=== PATIENT | female | born 1960 | race African-American/Black ===

== ENCOUNTER 2016-08-22 12:50 | Emergency (ER) | payer OTHER ==
[~2016-08-22] VITALS: Ht 157.5 cm; Wt 74.8 kg
--- NOTE | 2016-08-22 13:06 | NUR ---
PT BRIB self, c/o of N/V/D x 5 days, states " 3 episdoes emesis today" 09/03 cramping pain to lower abd non radiating, abd is soft/tender to touch.
[2016-08-22] MEDS ORDERED: IV SET PRIMARY 1 EA INFUS.SET MC ONE ×2 (13:21→13:47)
[2016-08-22] MEDS ORDERED: IV NS 0.9% 1,000 ML ONE ×2 (13:21→13:47)
[2016-08-22] MEDS ORDERED: MORPHINE SULFATE INJ 2 MG/ML DISP.SYRIN ONE (13:21)
[2016-08-22] MEDS ORDERED: ONDANSETRON HCL/PF 4 MG/2 ML VIAL ONE (13:21)
--- NOTE | 2016-08-22 13:23 | NUR ---
CALLED KENNY, DATA SERVICES DEVELOPER, TO COME SEE PT
[2016-08-22 13:27] LABS: EOSINOPHILS # (AUTO) 0.1 /CMM (0.0-0.7)
[2016-08-22 13:28] LABS: BASOPHILS # (AUTO) 0.5 /CMM (0.0-0.2); BASOPHILS % (AUTO) 4.9 % (0.0-2.0); EOSINOPHILS % (AUTO) 0.6 % (0.0-6.0); HEMATOCRIT 37 % (33-45); HEMOGLOBIN 11.8 g/dL (11.5-14.8); LYMPHOCYTES # (AUTO) 2.3 /CMM (0.8-4.8); MEAN CORPUSCULAR HEMOGLOBIN 28 PG (26.0-33.0); MEAN CORPUSCULAR HGB CONC 32 g/dl (31.0-36.0); MEAN CORPUSCULAR VOLUME 87 fL (82-100); MONOCYTES # (AUTO) 0.8 /CMM (0.1-1.30); MONOCYTES % (AUTO) 6.8 % (2.0-12.0); NEUTROPHILS # (AUTO) 7.4 /CMM (1.8-8.9); NEUTROPHILS % (AUTO) 66.7 % (43.0-81.0); PLATELET COUNT (AUTO) 358 /CMM (150-450); RED BLOOD CELL COUNT(AUTO) 4.29 MIL/uL (4.0-5.2); WHITE BLOOD COUNT (AUTO) 11.1 K/uL (4.3-11.0)
[2016-08-22] MEDS ORDERED: IV NS 0.9% 1,000 ML BAG IV ONE ×2 (13:30→14:00)
[2016-08-22] MEDS ORDERED: ONDANSETRON HCL/PF 4 MG/2 ML VIAL IVP ONE (13:30)
[2016-08-22] MEDS ORDERED: MORPHINE SULFATE INJ 2 MG/ML DISP.SYRIN IV ONE (13:30)
[2016-08-22 13:33] LABS: CALCIUM, SERUM 9.4 mg/dL (8.5-10.1); CREATININE 1.1 mg/dL (0.6-1.3); POTASSIUM 3.4 mmol/L (3.5-5.1)
[2016-08-22 13:38] LABS: ALBUMIN 3.5 g/dL (3.4-5.0); BILIRUBIN,DIRECT 0.1 mg/dL (0.0-0.2); BILIRUBIN,TOTAL 0.3 mg/dL (0.2-1.0); TOTAL PROTEIN, SERUM 7.9 g/dL (6.4-8.2)
[2016-08-22 13:44] LABS: BILIRUBIN,URINE Negative (NEGATIVE); BLOOD, URINE Trace-lysed Ery/uL (NEGATIVE); COLOR,URINE Yellow (YELLOW); KETONES,URINE 15 (NEGATIVE); LEUKOCYTE ESTERASE ,URINE Negative (NEGATIVE); NITRITE, URINE Negative (NEGATIVE); PROTEIN,URINE 100 mg/dl (NEGATIVE); UGLUCOSE 500 MG/DL mg/dL (NEGATIVE)
[2016-08-22 13:46] LABS: APPEARANCE,URINE Hazy (CLEAR)
[2016-08-22] MEDS ORDERED: METOCLOPRAMIDE HCL 10 MG/2 ML VIAL ONE (13:47)
[2016-08-22 13:50] LABS: RBC,URINE 0-2 /HPF (0-2)
[2016-08-22 13:51] LABS: BACTERIA,URINE None seen /HPF (None Seen); MUCUS,URINE Rare /LPF (None Seen); SQUAMOUS EPITHELIAL CELL,UR Few /HPF (None Seen)
[2016-08-22] MEDS ORDERED: diphenhydrAMINE HCL 50 MG/ML VIAL ONE (13:51)
--- NOTE | 2016-08-22 13:53 | NUR ---
DMITRY received a call from Uma in ED informing DMITRY that Physicians Estimator And Drafter Supervisor Blanka Ware requested for SW to see pt. due to possible living situation. SW met with pt. bedside. SW introduced herself to pt. and inquired why was she crying. Pt. is a 56 year old pleasant woman who appeared depressed and tearful. Pt. informed SW that she use to live in [place] with her boyfriend two years ago, however her boyfriend suffered a stroke and is currently in a coma and paralyzed. Pt's boyfriend is currently at [facility]. Pt. is currently living on a friend's couch. Her [place] of [place] is [id number] [place] [address], [address], [facility]. Pt. is very emotional and having a difficult time dealing with her boyfriend's medical condition. SW provided active listening and emotional support to pt. Pt. states she lives in her car on some days. SW offered snf placement, however pt. refused stating she will go back to her friend's place to the aforementioned address. DMITRY also encouraged pt. to attend an outpatient mental health clinic for therapy to deal with the trauma she has experienced due to her boyfriend's medical condition. Pt. agreed to accept referrals to mental health clinics. Pt. informed SW she use to go to a therapist two years ago but only went for a few sessions. DMITRY offered pt. the following resources: Homeless Resource Directory which includes hot meals, showers, emergency shelters, transitional housing; [facility] ; [employer] of food [facility]; list of outpatient mental health services which included [facility] ; [facility] and [facility] .
[2016-08-22] MEDS ORDERED: diphenhydrAMINE HCL 50 MG/ML VIAL IV ONE (14:00)
[2016-08-22] MEDS ORDERED: POTASSIUM CHLORIDE 20 MEQ TAB.PRT.SR PO ONE ×2 (14:00→14:28)
[2016-08-22] MEDS ORDERED: METOCLOPRAMIDE HCL 10 MG/2 ML VIAL IV ONE (14:00)
--- NOTE | 2016-08-22 14:35 | NUR ---
PT RESTING IN BED, AROUSED TO VOICE, A/O X4 STATES "0/10 PAIN, NOT FEELING NAUSEA" BREATHING EVEN/UNLABORED
[2016-08-22 15:23] VITALS: BP 143/81
--- NOTE | 2016-08-22 15:25 | NUR ---
IV removed. Catheter intact and site benign. Pressure and 4x4 applied to site. No bleeding noted. Patient discharged to home in stable condition. Written and verbal after care instructions given. Patient verbalizes understanding of instruction. AMBULATORY WITH STEADY GAIT. ADVISED NOT TO DRIVE TODAY.
== END 2016-08-22 15:24 | disposition home or self-care (01) ==
LOC: ER 12:51
DX: R11.2 Nausea with vomiting, unspecified (principal); R79.89 Other specified abnormal findings of blood chemistry; E87.8 Other disorders of electrolyte and fluid balance, not elsewhere classified; E86.0 Dehydration; E87.6 Hypokalemia; E11.649 Type 2 diabetes mellitus with hypoglycemia without coma; R74.8 Abnormal levels of other serum enzymes; R19.7 Diarrhea, unspecified; R81 Glycosuria; Z63.9 Problem related to primary support group, unspecified
CPT/HCPCS: 36415; 76705-TC; 80048-TC; 80076-TC; 81000-TC; 82962-TC; 83690-TC; 85025-TC; A4606; J1200; J2270; J2405; J2765; J7030; Z7610

== ENCOUNTER 2016-10-11 04:32 | Emergency (ER) | payer OTHER ==
[~2016-10-11] VITALS: Ht 157.5 cm; Wt 69.9 kg
--- NOTE | 2016-10-11 04:40 | NUR ---
PT PLACED IN BED 7. NO COMPLIANT OF PAIN. ON ROOM AIR PAUL WELL. AWAITING TO SEE
--- NOTE | 2016-10-11 05:00 | NUR ---
RAC 20G IV STARTED. ZOFRAN 4MG GIVEN. IV 1L NS BOLUS INFUSING.
[2016-10-11] MEDS ORDERED: ONDANSETRON HCL/PF 4 MG/2 ML VIAL ONE (05:07)
[2016-10-11 05:27] LABS: BASOPHILS % (AUTO) 0.1 % (0.0-2.0); EOSINOPHILS % (AUTO) 0.1 % (0.0-6.0); HEMATOCRIT 37 % (33-45); LYMPHOCYTES # (AUTO) 1.4 /CMM (0.8-4.8); MEAN CORPUSCULAR HEMOGLOBIN 29 PG (26.0-33.0); MEAN CORPUSCULAR HGB CONC 33 g/dl (31.0-36.0); MEAN CORPUSCULAR VOLUME 89 fL (82-100); MONOCYTES # (AUTO) 0.4 /CMM (0.1-1.30); MONOCYTES % (AUTO) 3.9 % (2.0-12.0); NEUTROPHILS % (AUTO) 81.9 % (43.0-81.0); PLATELET COUNT (AUTO) 342 /CMM (150-450); RDW COEFFICIENT OF VARIATION 13.9 (11.5-15.0); RED BLOOD CELL COUNT(AUTO) 4.19 MIL/uL (4.0-5.2); WHITE BLOOD COUNT (AUTO) 9.8 K/uL (4.3-11.0)
[2016-10-11] MEDS ORDERED: ONDANSETRON HCL/PF 4 MG/2 ML VIAL IVP ONE (05:30)
[2016-10-11] MEDS ORDERED: IV NS 0.9% 1,000 ML BAG IV ONE (05:30)
[2016-10-11] MEDS ORDERED: hydrALAZINE HCL IV 20 MG VIAL ONE (05:37)
[2016-10-11 05:45] LABS: BILIRUBIN,DIRECT 0.1 mg/dL (0.0-0.2); BILIRUBIN,TOTAL 0.4 mg/dL (0.2-1.0); CALCIUM, SERUM 8.8 mg/dL (8.5-10.1); POTASSIUM 3.2 mmol/L (3.5-5.1); TOTAL PROTEIN, SERUM 7.3 g/dL (6.4-8.2)
--- NOTE | 2016-10-11 05:50 | NUR ---
PT TAKEN TO CT WITH OIL SPOT WASHER.
[2016-10-11] MEDS ORDERED: hydrALAZINE HCL IV 20 MG VIAL IV ONE (06:00)
--- NOTE | 2016-10-11 06:07 | NUR ---
PT RETURNED FROM CT.
[2016-10-11 07:13] LABS: APPEARANCE,URINE CLEAR (CLEAR); BILIRUBIN,URINE NEGATIVE (NEGATIVE); BLOOD, URINE NEGATIVE Ery/uL (NEGATIVE); COLOR,URINE YELLOW (YELLOW); KETONES,URINE 3+ (NEGATIVE); LEUKOCYTE ESTERASE ,URINE NEGATIVE (NEGATIVE); NITRITE, URINE NEGATIVE (NEGATIVE); PH,URINE 7.5 (5.0-8.0); PROTEIN,URINE 1+ mg/dl (NEGATIVE); UGLUCOSE 3+ mg/dL (NEGATIVE); UROBILINOGEN,URINE 0.2 EU/dL (0.2)
[2016-10-11 07:27] LABS: CLINITEST,URINE 1%
[2016-10-11 07:28] LABS: BACTERIA,URINE None seen /HPF (None Seen); RBC,URINE NONE SEEN /HPF (0-2); SQUAMOUS EPITHELIAL CELL,UR Few /HPF (None Seen); WBC,URINE 0-2 /HPF (0-3)
[2016-10-11 07:37] VITALS: BP 155/70
--- NOTE | 2016-10-11 07:39 | NUR ---
Patient discharged to home in stable condition. Written and verbal after care instructions given. Patient verbalizes understanding of instruction.IV removed. Catheter intact and site benign. Pressure and 4x4 applied to site. No bleeding noted. ambulatory with steady gait. rr even and unlabored. vss. prescriptions given. no further complaints.
== END 2016-10-11 07:38 | disposition home or self-care (01) ==
LOC: ER 04:37
DX: R11.2 Nausea with vomiting, unspecified (principal); R19.7 Diarrhea, unspecified; E11.9 Type 2 diabetes mellitus without complications; I10 Essential (primary) hypertension; Z88.0 Allergy status to penicillin
CPT/HCPCS: 36415; 74176; 80048; 80076; 81001; 83690; 85025; 96361; 96374; 96375; 99285; A4606; J0360; J2405; J7030; Z7610; 71250-TC; 81000-TC

== ENCOUNTER 2016-10-12 03:11 | Emergency (ER) | payer OTHER ==
[~2016-10-12] VITALS: Ht 154.9 cm; Wt 68.0 kg
[2016-10-12 03:29] VITALS: BP 146/80
[2016-10-12] MEDS ORDERED: ONDANSETRON HCL/PF 4 MG/2 ML VIAL ONE (03:55)
[2016-10-12] MEDS ORDERED: ONDANSETRON HCL/PF 4 MG/2 ML VIAL IM ONE (04:00)
[2016-10-12] MEDS ORDERED: KETOROLAC TROMETHAMINE 15 MG/ML VIAL ONE (04:23)
[2016-10-12] MEDS ORDERED: KETOROLAC TROMETHAMINE INJ 30 MG/ML VIAL IM ONE (04:30)
== END 2016-10-12 04:43 | disposition home or self-care (01) ==
LOC: ER 03:13
DX: R11.2 Nausea with vomiting, unspecified (principal); I10 Essential (primary) hypertension; E11.9 Type 2 diabetes mellitus without complications; F17.200 Nicotine dependence, unspecified, uncomplicated; Z88.0 Allergy status to penicillin; Z98.890 Other specified postprocedural states
CPT/HCPCS: 96372 ×2; 99284; A4606; J1885; J2405; Z7610